=== PATIENT | female | born 2000 | race African-American/Black ===

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

== ENCOUNTER 2022-02-28 18:32 | Emergency (ER) | payer OTHER | END 2022-02-28 20:26 | disposition home or self-care (01) | LOC: CSHERS 18:32 | DX: O99.713 Diseases of the skin and subcutaneous tissue complicating pregnancy, third trimester (principal); L50.0 Allergic urticaria; Z3A.31 31 weeks gestation of pregnancy | CPT/HCPCS: 99282 ==

== ENCOUNTER 2022-03-07 12:51 | Day surgery (SDC) | payer OTHER ==
[2022-03-07] MEDS ORDERED: Acetaminophen 500 MG TAB ONE (13:28)
[2022-03-07] MEDS ORDERED: diphenhydrAMINE 25 MG CAP ONE (13:29)
[2022-03-07] MEDS ORDERED: Iron Sucrose Complex 500 MG in Sodium Chloride 0.9% 250 ML 250 ML IVPB SCH (13:45)
[2022-03-07] MEDS ORDERED: Acetaminophen 500 MG TAB PO SCH (13:45)
[2022-03-07] MEDS ORDERED: diphenhydrAMINE 25 MG CAP PO SCH (13:45)
== END 2022-03-07 18:15 | disposition home or self-care (01) ==
LOC: CSHSDC 12:51
PROVIDERS: ATTEND Student in an Organized Health Care Education/Training Program
DX: O99.019 Anemia complicating pregnancy, unspecified trimester (principal); D64.9 Anemia, unspecified; Z3A.00 Weeks of gestation of pregnancy not specified
CPT/HCPCS: J1756; J7050

== ENCOUNTER → 2022-03-14 | Day surgery (SDC) | payer OTHER ==
[~2022-03-14] MED LIST: Acetaminophen 500 MG TAB ONE; Iron Sucrose Complex 500 MG in Sodium Chloride 0.9% 250 ML 250 ML IVPB SCH; diphenhydrAMINE 25 MG CAP ONE
== END ==
LOC: CSHSDC 12:48
PROVIDERS: ATTEND Student in an Organized Health Care Education/Training Program
DX: O99.019 Anemia complicating pregnancy, unspecified trimester (principal); D64.9 Anemia, unspecified
CPT/HCPCS: J1756; J7050

== ENCOUNTER 2022-05-10 05:30 | Inpatient (IN) | payer OTHER ==
[2022-05-11] MEDS ORDERED: Lidocaine 1% (PF) 30 ML VIAL SC PRN (02:40)
[2022-05-11] MEDS ORDERED: Promethazine HCl 25 MG/ML VIAL IM PRN ×2 (02:40→09:36)
[2022-05-11] MEDS ORDERED: hydrALAZINE 20 MG/ML VIAL SLOW IVP PRN (02:40)
[2022-05-11] MEDS ORDERED: Ondansetron PF 4 MG/2 ML Vial IVP PRN ×2 (02:40→09:36)
[2022-05-11] MEDS ORDERED: Ibuprofen 800 MG TAB PO PRN (02:40)
[2022-05-11] MEDS ORDERED: NS w/ Oxytocin 30 units 500 ML IV SCH ×2 (02:45→10:45)
[2022-05-11] MEDS ORDERED: Penicillin G Potassium 5 MILL.UNITS in Sodium Chloride 0.9% 100 ML IVPB SCH (02:45)
[2022-05-11 02:54] VITALS: BMI 22.1
[2022-05-11] MEDS ORDERED: Misoprostol 100 MCG TAB ONE (03:26)
[2022-05-11 04:01] LABS: Hemoglobin 13.2 g/dL (12.0-15.5); Mean Corpuscular HGB CONC 33.4 g/dL (32.0-36.0); Mean Corpuscular Hemoglobin 27.2 pg (27.0-33.0); Mean Corpuscular Volume 81.4 fl (81.6-98.3); Platelet Count 130 10x3/uL (150-450); Red Blood Cell (RBC) Count 4.85 10x6/uL (3.90-5.03); White Blood Cell (WBC) Count 6.3 10x3/uL (3.5-10.5)
[2022-05-11 04:25] LABS: Hep B Surf Ag Non-Reactive S/CO (NonReactive)
[2022-05-11 04:27] LABS: Syphilis Antibody Nonreactive (Nonreactive); Syphilis Antibody Index 0.06 S/CO (<1.00 Non-Reactive)
[2022-05-11 05:53] LABS: SARS-CoV-2 NAA Rapid Test Not Detected (NotDetected)
[2022-05-11] MEDS: Penicillin G 2.5 MILL.units 2.5 MILL.UNITS in Premix Bag 1 BAG IVPB SCH ×4 (08:52→23:00)
[2022-05-11] MEDS ORDERED: Fentanyl 2 mcg/Bup 0.1% Cadd 100 ML ONE (09:08)
[2022-05-11] MEDS ORDERED: diphenhydrAMINE 50 MG/ML VIAL IVP PRN (09:36)
[2022-05-11] MEDS ORDERED: ePHEDrine Sulfate 50 MG/10 ML VIAL SLOW IVP PRN (09:36)
[2022-05-11] MEDS ORDERED: Lactated Ringer's 500 ML IV PRN (09:36)
[2022-05-11] MEDS ORDERED: Naloxone HCl 0.4 mg/ml Vial IVP PRN ×2 (09:36)
[2022-05-11] MEDS ORDERED: Moisturizing Cream (Eucerin) 113 GM JAR TOP PRN (09:36)
[2022-05-11] MEDS ORDERED: Acetaminophen 325 MG TAB PO PRN (09:36)
[2022-05-11] MEDS ORDERED: Communication Order-Pharmacy FS SCH (09:45)
[2022-05-11] MEDS ORDERED: Famotidine/PF 20 mg/2ml Vial SLOW IVP PRN (09:46)
[2022-05-11] MEDS ORDERED: Bicitra 30 ML UDCUP PO PRN (09:46)
[2022-05-11] MEDS ORDERED: Mineral Oil ENEMA ONE (09:57)
[2022-05-11] MEDS ORDERED: Terbutaline Sulfate 1 MG/ML VIAL SC SCH (10:00)
[2022-05-11] MEDS ORDERED: Azithromycin 500 MG in Sodium Chloride 0.9% 250 ML 250 ML IVPB SCH (10:00)
[2022-05-11] MEDS ORDERED: CEFAZOLIN 2 GM in Sodium Chloride 0.9% 100 ML IVPB SCH (10:00)
[2022-05-11] MEDS ORDERED: Bupivacaine/Epinephrine 0.25% 30 ML VIAL ONE (14:27)
[2022-05-11] MEDS ORDERED: Bupivacaine 0.25% HCL 30 ML VIAL ONE (14:27)
[2022-05-11] MEDS ORDERED: Terbutaline Sulfate 1 MG/ML VIAL ONE (14:27)
[2022-05-11] MEDS: Misoprostol 100 MCG TAB VAG SCH (15:31)
[2022-05-11] MEDS: Fentanyl 2 mcg/Bupivacaine 0.1% Cassette 100 ML EPIDURAL SCH (17:48)
[2022-05-12] MEDS: Fentanyl 2 mcg/Bupivacaine 0.1% Cassette 100 ML EPIDURAL SCH ×2 (01:25→09:01)
[2022-05-12] MEDS: Penicillin G 2.5 MILL.units 2.5 MILL.UNITS in Premix Bag 1 BAG IVPB SCH ×4 (03:00→19:33)
[2022-05-12] MEDS ORDERED: Fentanyl 2 mcg/Bup 0.1% Cadd 100 ML ONE ×2 (09:00→15:50)
[2022-05-12] MEDS ORDERED: Famotidine/PF 20 mg/2ml Vial ONE (17:30)
[2022-05-12] MEDS ORDERED: Azithromycin 500 MG VIAL ONE (17:30)
[2022-05-12] MEDS ORDERED: CEFAZOLIN 2 GM VIAL ONE (17:30)
[2022-05-12] MEDS ORDERED: Fentanyl 100 MCG/2 ML VIAL ONE ×2 (17:31→19:48)
[2022-05-12] MEDS ORDERED: PHENYLEPHRINE-NS 100 MCG/ML 10 ML SYRINGE ONE (17:40)
[2022-05-12] MEDS ORDERED: hydrALAZINE 20 MG/ML VIAL SLOW IVP PRN (17:54)
[2022-05-12] MEDS ORDERED: Lanolin Ointment 7 GM TUBE TOP PRN (17:54)
[2022-05-12] MEDS ORDERED: Simethicone Chewable 80 MG TAB PO PRN (17:54)
[2022-05-12] MEDS ORDERED: HYDROcodone/Acetaminophen 5/325 mg Tablet PO PRN ×2 (17:54)
[2022-05-12] MEDS ORDERED: Ondansetron PF 4 MG/2 ML Vial ONE (17:58)
[2022-05-12] MEDS ORDERED: Oxytocin 10 UNITS/ML VIAL ONE (17:58)
[2022-05-12 18:04] LABS: pH (Cord, venous) 7.327 (7.250-7.350)
[2022-05-12] MEDS ORDERED: Meperidine HCl/PF 25 MG/ML VIAL SLOW IVP PRN (18:43)
[2022-05-12] MEDS ORDERED: diphenhydrAMINE 50 MG/ML VIAL IVP PRN (18:43)
[2022-05-12] MEDS ORDERED: HYDROmorphone 2 MG/ML VIAL SLOW IVP PRN (18:43)
[2022-05-12] MEDS ORDERED: Promethazine HCl 25 MG SUPP PR PRN (18:43)
[2022-05-12] MEDS ORDERED: Naloxone HCl 0.4 mg/ml Vial IVP PRN ×2 (18:43)
[2022-05-12] MEDS ORDERED: Promethazine HCl 25 MG/ML VIAL IM PRN (18:43)
[2022-05-12] MEDS ORDERED: Moisturizing Cream (Eucerin) 113 GM JAR TOP PRN (18:43)
[2022-05-12] MEDS ORDERED: Ondansetron HCl/PF 4 MG/2 ML Vial IVP PRN (18:43)
[2022-05-12] MEDS ORDERED: Ondansetron PF 4 MG/2 ML Vial IVP PRN (18:43)
[2022-05-12] MEDS ORDERED: Fentanyl 100 MCG/2 ML VIAL SLOW IVP PRN (18:43)
[2022-05-12] MEDS ORDERED: Naloxone HCl 0.4 mg/ml Vial IV PRN (18:43)
[2022-05-12] MEDS ORDERED: Ketorolac Tromethamine 30 MG/ML VIAL IVP SCH (18:45)
[2022-05-12] MEDS ORDERED: Communication Order-Pharmacy FS SCH (18:45)
[2022-05-12] MEDS: Ketorolac Tromethamine 30 MG/ML VIAL IVP PRN (19:27)
[2022-05-12] MEDS: Lactated Ringer's 1,000 ML IV SCH (19:31)
[2022-05-12] MEDS: Misoprostol 100 MCG TAB VAG SCH ×2 (19:32→19:33)
[2022-05-13] MEDS: Docusate 100 MG CAP PO SCH ×3 (01:24→21:12)
[2022-05-13] MEDS: Ketorolac Tromethamine 30 MG/ML VIAL IVP PRN ×3 (02:54→14:38)
[2022-05-13] MEDS: Lactated Ringer's 1,000 ML IV SCH (02:58)
[2022-05-13 04:25] LABS: Hemoglobin 10.2 g/dL (12.0-15.5); Mean Corpuscular Hemoglobin 27.5 pg (27.0-33.0); Mean Corpuscular Volume 83.3 fl (81.6-98.3); Platelet Count 109 10x3/uL (150-450); Red Blood Cell (RBC) Count 3.71 10x6/uL (3.90-5.03); White Blood Cell (WBC) Count 12.6 10x3/uL (3.5-10.5)
[2022-05-13] MEDS ORDERED: HYDROcodone/Acetaminophen 5/325 mg Tablet PO PRN (06:45)
[2022-05-13] MEDS: Prenatal Vitamin 1 TAB PO SCH (08:53)
[2022-05-13] MEDS: Ferrous Sulfate 325 MG TAB PO SCH (08:53)
[2022-05-13] MEDS ORDERED: Azithromycin 500 MG in Sodium Chloride 0.9% 250 ML 250 ML IVPB SCH (10:45)
[2022-05-13] MEDS ORDERED: CEFAZOLIN 2 GM in Sodium Chloride 0.9% 100 ML IVPB SCH (10:45)
[2022-05-13 19:15] LABS: #Eosinphils 0.1 10x3/uL (0.0-0.5); #Monocytes 1.1 10x3/uL (0.0-1.1); #Neutrophils 9.4 10x3/uL (1.5-8.4); %Basophils 0.3 % (0.0-2.0); %Eosinophils 0.7 % (0.0-6.0); %Monocytes 8.9 % (0.0-10.0); %Neutrophils 73.8 % (40.0-75.0); Hemoglobin 10.3 g/dL (12.0-15.5); Mean Corpuscular HGB CONC 32.9 g/dL (32.0-36.0); Mean Corpuscular Hemoglobin 27.5 pg (27.0-33.0); Mean Corpuscular Volume 83.5 fl (81.6-98.3); Platelet Count 122 10x3/uL (150-450); Red Blood Cell (RBC) Count 3.75 10x6/uL (3.90-5.03); White Blood Cell (WBC) Count 12.7 10x3/uL (3.5-10.5)
[2022-05-13 20:12] LABS: Anisocytosis SLIGHT = 6-15 cells (100X) (0-5/hpf); Hypochromia SLIGHT = 6-15 cells (100X) (0-5/hpf); Microcytosis MODERATE=15-30 cells (100X) (0-5/hpf); Ovalocytes SLIGHT = 2-5 cells (100X) (0-1/hpf); Tear Drops SLIGHT = 2-5 cells (100X) (0-1/hpf)
[2022-05-13 20:13] LABS: Large Platelets SLIGHT; Platelet Morphology Comment Appears Decreased
[2022-05-13] MEDS: Ibuprofen 800 MG TAB PO SCH (21:12)
[2022-05-13] MEDS: HYDROcodone/Acetaminophen 5/325 mg Tablet PO PRN (21:16)
[2022-05-14] MEDS: HYDROcodone/Acetaminophen 5/325 mg Tablet PO PRN ×4 (03:00→16:56)
[2022-05-14 03:38] LABS: #Eosinphils 0.1 10x3/uL (0.0-0.5); #Monocytes 0.9 10x3/uL (0.0-1.1); #Neutrophils 6.9 10x3/uL (1.5-8.4); %Basophils 0.3 % (0.0-2.0); %Eosinophils 1.3 % (0.0-6.0); %Lymphocytes 24.2 % (18.0-47.0); %Monocytes 8.7 % (0.0-10.0); %Neutrophils 65.1 % (40.0-75.0); Hemoglobin 9.6 g/dL (12.0-15.5); Mean Corpuscular HGB CONC 32.7 g/dL (32.0-36.0); Mean Corpuscular Hemoglobin 27.4 pg (27.0-33.0); Platelet Count 124 10x3/uL (150-450); White Blood Cell (WBC) Count 10.7 10x3/uL (3.5-10.5)
[2022-05-14] MEDS: Ibuprofen 800 MG TAB PO SCH ×2 (05:19→13:41)
[2022-05-14 06:01] LABS: Anisocytosis SLIGHT = 6-15 cells (100X) (0-5/hpf); Microcytosis SLIGHT = 6-15 cells (100X) (0-5/hpf)
[2022-05-14 06:02] LABS: Hypochromia SLIGHT = 6-15 cells (100X) (0-5/hpf); Ovalocytes SLIGHT = 2-5 cells (100X) (0-1/hpf); Tear Drops SLIGHT = 2-5 cells (100X) (0-1/hpf)
[2022-05-14 06:03] LABS: Platelet Morphology Comment Appears Decreased
[2022-05-14] MEDS: Ferrous Sulfate 325 MG TAB PO SCH (09:04)
[2022-05-14] MEDS: Prenatal Vitamin 1 TAB PO SCH (09:05)
[2022-05-14] MEDS: Docusate 100 MG CAP PO SCH (09:05)
[2022-05-14 16:13] VITALS: BP 119/71; TEMP 97.7
== END 2022-05-14 17:10 | disposition home or self-care (01) | DRG 788 ==
LOC: CSHLD 05-11 02:10 → CSHPP 05-12 20:55
PROVIDERS: ADMIT Family Medicine; ATTEND Family Medicine
PROC: 10S0XZZ Reposition Products of Conception, External Approach (ICD-10-PCS; principal; 2022-05-11)
PROC: 3E0P7VZ Introduction of Hormone into Female Reproductive, Via Natural or Artificial Opening (ICD-10-PCS; 2022-05-11)
PROC: 0U7C7ZZ Dilation of Cervix, Via Natural or Artificial Opening (ICD-10-PCS; 2022-05-11)
PROC: 3E033VJ Introduction of Other Hormone into Peripheral Vein, Percutaneous Approach (ICD-10-PCS; 2022-05-12)
PROC: 10907ZC Drainage of Amniotic Fluid, Therapeutic from Products of Conception, Via Natural or Artificial Opening (ICD-10-PCS; 2022-05-12)
PROC: 10H07YZ Insertion of Other Device into Products of Conception, Via Natural or Artificial Opening (ICD-10-PCS; 2022-05-12)
PROC: 10D00Z1 Extraction of Products of Conception, Low, Open Approach (ICD-10-PCS; 2022-05-12)
DX: O99.824 Streptococcus B carrier state complicating childbirth (principal); Z3A.40 40 weeks gestation of pregnancy; Z37.0 Single live birth; Z20.822 Contact with and (suspected) exposure to COVID-19; D50.9 Iron deficiency anemia, unspecified; O99.02 Anemia complicating childbirth; Z79.899 Other long term (current) drug therapy; O76 Abnormality in fetal heart rate and rhythm complicating labor and delivery; O69.81X0 Labor and delivery complicated by cord around neck, without compression, not applicable or unspecified; O32.8XX0 Maternal care for other malpresentation of fetus, not applicable or unspecified; O72.3 Postpartum coagulation defects; D69.6 Thrombocytopenia, unspecified; D72.829 Elevated white blood cell count, unspecified; O99.13 Other diseases of the blood and blood-forming organs and certain disorders involving the immune mechanism complicating the puerperium
CPT/HCPCS: 36415; 51702; 59412; 82805; 85025; 85027; 86780; 86850; 86900; 86901; 87340; J1200; J1885; J2405; J2540; J2590; J3010; J3105; J3490; J7120; S0020; U0002